=== PATIENT | male | born 1945 | race Caucasian/White ===

== ENCOUNTER 2016-08-17 12:44 | Day surgery (SDC) | payer MEDICARE, OTHER ==
[~2016-08-17] VITALS: Ht 162.6 cm; Wt 78.2 kg
[~2016-08-17 12:44] MED LIST: ALLO100T PO; ASPI81TA82 PO; CALC625 PO; CIAL5TAB PO; HYDR-2768 PO; LORTA5 PO; MULT-65 PO; ONDANSETRON HCL 4 MG/2 ML VIAL IV PUSH ONE; PHENYLEPH/NS 1000 MCG/10 ML SYR IV ONE; PROPOFOL 200 MG/20 ML AMP IV ONE; SIMV20 PO; VITA500T83 PO; ePHEDrine/NS 25 MG/5 ML SYR IV ONE
[2016-08-17 13:15] VITALS: BP 138/85; PULSE 85; RESP 20; TEMP 97.6; O2SAT 95
[2016-08-17] MEDS ORDERED: VITA250C3 CHEW (13:30)
[2016-08-17] MEDS ORDERED: MULTTAB4 PO (13:30)
[2016-08-17] MEDS ORDERED: FIBE625T PO (13:31)
[2016-08-17] MEDS ORDERED: ALEV220T14 PO (13:32)
[2016-08-17] MEDS ORDERED: [UNRECOGNIZED DRUG - CODE] PO (13:33)
[2016-08-17] MEDS ORDERED: TRIA37.5 PO (13:33)
[2016-08-17] MEDS ORDERED: NIAC500T5 PO (13:34)
[2016-08-17] MEDS ORDERED: ASPI81CH CHEW (13:35)
[2016-08-17] MEDS ORDERED: SIMV20TA PO (13:35)
[2016-08-17] MEDS ORDERED: CIAL5TAB PO (13:37)
[2016-08-17] MEDS ORDERED: CHOL5000 PO (13:37)
[2016-08-17] MEDS ORDERED: ALLO100T PO (13:38)
[2016-08-17] MEDS ORDERED: ATROPINE SULFATE 1% OPHT SOLN 2 ML BTL ONE (13:38)
[2016-08-17] MEDS ORDERED: PHENYLEPHRINE HCL 2.5% OPTH SOLN 2 ML BTL ONE (13:39)
[2016-08-17] MEDS ORDERED: CYCLOPENTOLATE HCL 1% OPHT SOLN 2 ML BTL ONE (13:39)
[2016-08-17] MEDS ORDERED: TROPICAMIDE 1% OPHT SOLN 15 ML BTL ONE (13:40)
[2016-08-17] MEDS: CYCLOPENTOLATE HCL 1% OPHT SOLN 2 ML BTL LEFT EYE SCH ×4 (14:00→15:06)
[2016-08-17] MEDS ORDERED: SODIUM CHLORID 0.9% 500 ML IV PRN (14:00)
[2016-08-17] MEDS ORDERED: POVIDONE IODINE 5% (ANTISEPSIS KIT) 4 APPLICATIONS EACH NARE PRN (14:00)
[2016-08-17] MEDS ORDERED: LACTATED RINGER'S 1000 ML IV PRN (14:00)
[2016-08-17] MEDS ORDERED: CHLORHEXIDINE GLUCONATE 2 % 1 PACK (2 CLOTHS) TOPICAL PRN (14:00)
[2016-08-17] MEDS ORDERED: METOPROLOL TARTRATE 25 MG TAB PO PRN (14:00)
[2016-08-17] MEDS ORDERED: INSULIN HUMAN REGULAR 1,000 UNITS/10 ML VIAL SQ PRN (14:00)
[2016-08-17] MEDS: TROPICAMIDE 1% OPHT SOLN 15 ML BTL LEFT EYE SCH ×4 (14:01→15:06)
[2016-08-17] MEDS: PHENYLEPHRINE HCL 2.5% OPTH SOLN 2 ML BTL LEFT EYE SCH ×4 (14:02→15:06)
[2016-08-17] MEDS: ATROPINE SULFATE 1% OPHT SOLN 5 ML BTL LEFT EYE SCH ×5 (14:03→15:56)
[2016-08-17 14:14] LABS: AUTOMATED NEUTROPHIL # 4.4 TH/MM3 (1.8-7.7); BASOPHIL # 0.1 TH/MM3 (0-0.2); BASOPHIL % 1.2 % (0.0-2.0); EOSINOPHIL # 0.4 TH/MM3 (0-0.4); EOSINOPHIL % 4.9 % (0.0-4.0); HEMATOCRIT 44.1 % (39.0-51.0); HEMO FLAGS DIFF FINAL; LYMPH % 25.3 % (9.0-44.0); LYMPHOCYTE # 1.9 TH/MM3 (1.0-4.8); MEAN CELL VOLUME 92.4 FL (80.0-100.0); MEAN CORPUSCULAR HEMOGLOBIN 30.4 PG (27.0-34.0); MEAN CORPUSCULAR HGB CONC 32.9 % (32.0-36.0); MONO % 10.6 % (0.0-8.0); PLATELET COUNT 287 TH/MM3 (150-450); RED BLOOD COUNT 4.77 MIL/MM3 (4.50-5.90); RED CELL DISTRIBUTION WIDTH 14.4 % (11.6-17.2); WHITE BLOOD COUNT 7.6 TH/MM3 (4.0-11.0)
[2016-08-17] MEDS ORDERED: STERILE WATER FOR INJ 20 ML VIAL ONE (15:06)
[2016-08-17] MEDS ORDERED: TOBRAMYCIN/DEXAMETHASONE OPTH OINT 3.5 GM TUBE ONE (15:06)
[2016-08-17] MEDS ORDERED: EPINEPHrine HCL (1:1000) 30 MG/30 ML VIAL ONE (15:06)
[2016-08-17] MEDS ORDERED: DEXAMETHASONE SOD PHOS 4 MG/ML VIAL ONE (15:06)
[2016-08-17] MEDS ORDERED: ceFAZolin INJ 1,000 MG VIAL ONE (15:07)
--- NOTE | 2016-08-17 18:34 | MP ---
cc: MAGNUS INFANTE M.D. DATE OF SURGERY: 08/17/2016. PREOPERATIVE DIAGNOSIS: Rhegmatogenous retinal detachment left eye. POSTOPERATIVE DIAGNOSIS: Rhegmatogenous retinal detachment left eye. OPERATIVE PROCEDURE PERFORMED: Trans pars plana vitrectomy with internal drainage of subretinal fluid by Perfluoron liquid and laser photocoagulation and gas/ fluid exchange, left eye. SURGEON: Magnus Infante MD. ANESTHESIA: General laryngeal mask anesthesia. INDICATIONS FOR THE PROCEDURE: Mr. Palmer is a 71-year-old gentleman who developed decreased vision suddenly in his left eye beginning earlier in the week. The loss of vision was preceded by some floaters. When he presented to hi, his visual acuity was counting fingers at one foot and he had a macula off retinal detachment which went from approximately three to nine o'clock. One retinal break was seen at about 12:15 o'clock but in actuality at time of surgery there were several breaks along the superior vitreous base. It was recommended he undergo a vitrectomy gas / fluid exchange and laser to repair the retina, and he wished to proceed. Informed consent was obtained. No guarantee was made as to visual outcome. DESCRIPTION OF THE PROCEDURE IN DETAIL: He was brought to [facility] Operating Room #1 and placed on the operating table. Appropriate anesthesia monitoring devices were applied and he was placed under general anesthesia using a laryngeal mask. The left eye was identified as the operative site and then prepped and draped in the usual sterile fashion. A lid speculum was placed. The microscope was brought around and adjusted. At this time an appropriate time-out was called with the surgical crew agreeing to the surgical site and planned procedure. Using the Steve 23-gauge vitrectomy system, the trocar cannulas were placed 3.5 mm posterior to the limbus. The first one was placed at approximately three o'clock and verified to be in the posterior chamber. An infusion cannula was affixed to it. Two additional trocar cannulas were placed at ten and two o'clock. The eye was entered with the endolaser window shade cloth sewer light pipe and vitrectomy cutter. A core vitrectomy was carried out over the posterior pole after which some Perfluoron liquid was placed in the eye approximately 3 mL to stabilize the retina and then the peripheral vitrectomy to the vitreous base was performed 360 degrees. Flap tears were seen at about eleven o'clock, twelve o'clock, one o'clock. Once the peripheral vitrectomy was completed, more Perfluoron liquid was added and then laser photocoagulation using both the endolaser and the laser indirect was performed around the retinal breaks and the inferior periphery. A total of 1759 laser spots were placed with a duration of 0.1 to 0.15. The Perfluoron liquid was exchanged for air and the air was exchanged for a 15% mixture of C3F8 gas. The cannulas were removed one by one with tamponade of the site with a cotton swab and diathermy to the overlying conjunctival wound leaving the eye with good pressure and no visible air leaks. Atropine drops were placed in the cornea followed by subconjunctival injections of Ancef 125 mg in 0.5 cc and Decadron 2 mg in 0.5 cc. The lid speculum was removed and the patient was undraped. TobraDex ointment was placed on the cornea and then the left eye was patched and shielded. The patient had the laryngeal mass removed in the room and was returned to recovery in good condition laying on his right side. He will be asked to alternate between head up positioning and right side down positioning as well as 5 minutes face-down while awake each hour. MD KIMBERLY Guthrie/ANNETTA /6:08 PM /6:28 PM
[2016-08-17 18:58] VITALS: BP 104/68; PULSE 66; RESP 13; O2SAT 95
[2016-08-17] MEDS ORDERED: DO NOT ADM ANY ANTICOAGULANT DRUGS PRN (19:30)
--- NOTE | 2016-08-19 11:12 | EKG ---
Date Performed: 08/17/2016 Time Performed: 13:38:56 PTAGE: 71 years EKG: Sinus rhythm NORMAL ECG PREVIOUS TRACING : 02/18/2014 13.56 DOCTOR: Kain Pennington Interpretating Date/Time 08/19/2016 11:04:19
== END 2016-08-17 18:58 | disposition home or self-care (01) ==
LOC: HSDC 12:44
PROVIDERS: ATTEND Ophthalmology
DX: H33.002 Unspecified retinal detachment with retinal break, left eye (principal); I10 Essential (primary) hypertension
CPT/HCPCS: 00145; 67025; 67040; 85025; 93005; J0171; J0690; J1100; J2370; J2405; J3010

== ENCOUNTER → 2016-08-31 | Day surgery (SDC) | payer MEDICARE, OTHER ==
[~2016-08-31] VITALS: Ht 160 cm; Wt 77.2 kg
[~2016-08-31] MED LIST changes: +ACETAMINOPHEN 500 MG CPLT PO PRN; +ALEV220T14 PO; +ASPI81CH CHEW; -ASPI81TA82 PO; +ATRO10DR LEFT EYE; +ATROPINE SULFATE 1% OPHT SOLN 2 ML BTL ONE; +BALANCED SALT SOLN OPHT IRRIG 15 ML BTL ONE; +BUPIVACAINE HCL PF 0.75% 10 ML VIAL ONE; -CALC625 PO; +CHLORHEXIDINE GLUCONATE 2 % 1 PACK (2 CLOTHS) TOPICAL PRN; +CHOL5000 PO; +CYCLOPENTOLATE HCL 1% OPHT SOLN 2 ML BTL ONE; +DEXAMETHASONE SOD PHOS 4 MG/ML VIAL ONE; +DO NOT ADM ANY ANTICOAGULANT DRUGS PRN; +EPINEPHrine HCL (1:1000) 1 MG/ML VIAL ONE; +FIBE625T PO; -HYDR-2768 PO; +INSULIN HUMAN REGULAR 1,000 UNITS/10 ML VIAL SQ PRN; +IPRAAER INH; +LACTATED RINGER'S 1000 ML INJ 1,000 ML IV ONE; +LACTATED RINGER'S 1000 ML IV PRN; -LORTA5 PO; +METOPROLOL TARTRATE 25 MG TAB PO PRN; +MIDAZOLAM HCL 2 MG/2 ML VIAL ONE; -MULT-65 PO; +MULTTAB4 PO; +NIAC500T5 PO; +ONDANSETRON HCL 4 MG/2 ML VIAL IV PUSH PRN; +PHENYLEPHRINE HCL 2.5% OPTH SOLN 2 ML BTL ONE; +POVIDONE IODINE 5% (ANTISEPSIS KIT) 4 APPLICATIONS EACH NARE PRN; -SIMV20 PO; +SIMV20TA PO; +SODIUM CHLORID 0.9% 500 ML IV PRN; +STERILE WATER FOR INJ 20 ML VIAL ONE; +TOBRAMYCIN 0.3%/DEXAMETHASONE 0.1% OPHT SUSP 5 ML BTL ONE; +TOBRAMYCIN/DEXAMETHASONE OPTH OINT 3.5 GM TUBE ONE; +TRIA37.5 PO; +TRIAMCINOLONE ACETONIDE/PF 40 MG/ML OPTH VIAL ONE; +TROPICAMIDE 1% OPHT SOLN 15 ML BTL ONE; +TYLE325T PO; +UMEC1AER INH; +VITA250C3 CHEW; -VITA500T83 PO; +[UNRECOGNIZED DRUG - CODE] PO; +ceFAZolin INJ 1,000 MG VIAL ONE; -ePHEDrine/NS 25 MG/5 ML SYR IV ONE; +fentaNYL CITRATE 250 MCG/5 ML AMP ONE; +oxyCODONE/ACETAMINOPHEN 5 MG/325 MG TAB PO PRN
[2016-08-31 09:30] VITALS: BP 138/87; PULSE 76; RESP 20; TEMP 99.1; O2SAT 97
[2016-08-31] MEDS: CYCLOPENTOLATE HCL 1% OPHT SOLN 2 ML BTL LEFT EYE SCH ×4 (09:40→10:25)
[2016-08-31] MEDS: ATROPINE SULFATE 1% OPHT SOLN 5 ML BTL LEFT EYE SCH ×4 (09:40→10:25)
[2016-08-31] MEDS: PHENYLEPHRINE HCL 2.5% OPTH SOLN 2 ML BTL LEFT EYE SCH ×4 (09:40→10:25)
[2016-08-31] MEDS: TROPICAMIDE 1% OPHT SOLN 15 ML BTL LEFT EYE SCH ×4 (09:40→10:25)
[2016-08-31 14:45] VITALS: BP 145/80; PULSE 67; RESP 18; TEMP 98.7; O2SAT 97
--- NOTE | 2016-09-02 18:31 | MP ---
cc: MAGNUS INFANTE M.D. DATE OF SURGERY: 08/31/2016. PREOPERATIVE DIAGNOSIS: Hemorrhagic choroidal detachment, left eye. 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 OPERATIVE PROCEDURE PERFORMED: Drainage of hemorrhagic choroidal detachment, trans pars plana vitrectomy, intraoperative use of Perfluoron liquid and instillation of 5000 centistokes silicone oil, left eye SURGEON: Magnus Infante MD. ANESTHESIA: General laryngeal mask anesthesia. INDICATIONS FOR THE PROCEDURE: Mr. Palmer is a 71-year-old gentleman who underwent a rather routine vitrectomy with external drainage of internal and external drainage of subretinal fluid for a rhegmatogenous retinal detachment in his left eye two weeks ago. At the end of surgery, the retina was flat. There were no visible air leaks and routine, he was patched and shielded and went home and some time during the night was awakened by a sharp strong pain in his left eye. When he came in the following day and the patch was removed he had a 360 degree subconjunctival hemorrhage and fairly significant peripheral hemorrhagic choroidal detachments. He was pressure patched for an additional day in case there was a small leak through the sclerotomy and his pressure was low. His pressure came up and he was observed over the next 12 days to see if there would be a reduction of the choroidals and to allow any clotted blood to liquefy. He did have continuing discomfort with the pressure-like pain most likely from the choroidals, and on Sunday08/29/2016, we talked and I decided that it would probably be best to go and drain the choroidals and make sure the retina was attached because on the B scan it looked like he was starting to develop an inferior detachment. He agreed and informed consent was obtained. No guarantee was made as to visual outcome. DESCRIPTION OF THE PROCEDURE IN DETAIL: He was brought to [facility] operating room #1 and placed on the operating table. Appropriate anesthesia monitoring devices were applied. He was placed under general anesthesia using a laryngeal mask. The left eye was identified as the operative site and then prepped and draped in the usual sterile fashion. A lid speculum was placed and the conjunctiva was opened 360 degrees at the limbus using conjunctival forceps and Cely scissors. A relaxing incision was made at four o'clock. All four quadrants were opened with blunt dissection and the four recti muscles were hooked on muscle hooks and transferred onto 4-0 black silk ties. A cutdown was done at approximately two o'clock in the equatorial area did not show any promising drainage but a radial cutdown with a otoe-missouria blade done at approximately 5:30 o'clock did allow drainage of a dark-colored fluid, so there was some reduction in the inferior choroidals and this was done while a 23-gauge infusion cannula was in the vitreous cavity at approximately 3:30 o'clock. Next Perfluoron liquid was used to try and encourage further choroidal drainage and also flatten the inferior retina. There was some more successful drainage. Because of the complicated nature of this case, I decided to use a silicone oil tamponade rather than a gas bubble so the superior temporal sclerostomy was enlarged with the MVR blade and 5000 centistokes silicone oil was placed after the Perfluoron was removed and replaced with air. A total fill was achieved after which the cutdowns were closed with a 7-0 Vicryl and the sclerostomies were closed, the larger one with three interrupted 7-0 Vicryls and the other two with one 7-0 Vicryl. The orbit was irrigated with a mixture of 0.75% Marcaine without epinephrine and tobramycin. The conjunctiva was brought back up into place and then closed along the radial relaxing incision at 4:00 o'clock with interrupted 7-0 chromic. Subconjunctival injections of Ancef 125 mg in 0.5 cc and Decadron 2 mg in 0.5 cc as well as Kenalog 2 mg in 0.5 cc were given at separate sites. The lid speculum was removed and the patient was undraped. TobraDex ointment was placed on the cornea and the left eye was patched and shielded. The patient had the laryngeal mass removed in the room and was returned to recovery in good condition in a face-down position, which he will be asked to maintain as much as possible until seen in the office tomorrow at 11:00 o'clock a.m. MD KIMBERLY Guthrie/ANNETTA /1:51 PM /6:16 PM
== END | disposition home or self-care (01) ==
LOC: HSDC 08:03
PROVIDERS: ATTEND Ophthalmology
DX: H31.41 Hemorrhagic choroidal detachment (principal); H33.012 Retinal detachment with single break, left eye; I10 Essential (primary) hypertension
CPT/HCPCS: 00145; 67036; C1814; J0171; J0690; J1100; J2250; J2370; J2405; J3010; J3300; J7120